=== PATIENT | female | born 1990 | race Hispanic/Latino ===

== ENCOUNTER → 2018-05-04 13:07 | Outpatient (CLI) | payer MEDICAID, SELFPAY ==
[2018-05-04 13:44] LABS: Add Manual Diff / Slide Review NO; Basophils Absolute Auto 0 /uL (0-100); Basophils Percent Auto 0.5 % (0-2); Eosinophils Absolute Auto 100 /uL (0-450); Hematocrit 42.5 % (36-46); Hemoglobin 14.6 g/dL (12.0-16.0); Lymphocytes Absolute Auto 2100 /uL (1100-4500); Lymphocytes Percent Auto 22.2 % (25-40); Mean Corpuscular HGB Conc 34.4 % (30-36); Mean Corpuscular Hemoglobin 30.3 PG (26-34); Mean Corpuscular Volume 88.1 fL (80-100); Monocytes Absolute Auto 600 /uL (0-900); Monocytes Percent Auto 6.1 % (3-14); Neutrophils Absolute Auto 6700 /uL (1500-7000); Neutrophils Percent Auto 70.2 % (50-75); Platelet Count 259 X10^3/uL (150-400); Red Blood Cell Count 4.82 X10^6/uL (4.0-5.2); Red Cell Distribution Width 13.2 % (11.6-14.8); White Blood Cell Count 9.6 X10^3/uL (4.5-11.0)
[2018-05-04 14:05] LABS: Appearance Urine UA CLEAR; Bilirubin Urine UA NEGATIVE (NEGATIVE); Color Urine UA YELLOW; Glucose Urine UA NEGATIVE (Negative); Ketones Urine UA NEGATIVE (NEGATIVE); Leukocyte Esterase Urine UA NEGATIVE (NEGATIVE); Nitrite Urine UA NEGATIVE (Negative); Occult Blood Urine UA NEGATIVE (Negative); Protein Urine UA NEGATIVE (Negative); Specific Gravity Urine UA 1.025 (1.000-1.035); Urobilinogen Urine UA 0.2 E.U./dL (0.2); pH Urine UA 6.5 (4.5-8.0)
[2018-05-04 15:48] LABS: Hepatitis B Surface Antigen NEGATIVE s/c (NEGATIVE); Rubella Antibody IgG 89.4 IU/mL (>15)
[2018-05-04 16:05] LABS: HIV 1 and 2 Antibody NEGATIVE (NEGATIVE); Hep C Virus Ab w/Reflex Quant NEGATIVE s/c (NEGATIVE)
[2018-05-06 22:00] LABS: RPR Screen Nonreactive (Nonreactive)
== END ==
PROVIDERS: Visit Provider Family Medicine
DX: Z34.01 Encounter for supervision of normal first pregnancy, first trimester (principal)
CPT/HCPCS: 36415; 80055; 81003; 86703; 86787; 86803; 86850; 86900; 86901; 87086

== ENCOUNTER → 2018-05-05 14:49 | Outpatient (CLI) | payer MEDICAID, SELFPAY ==
--- NOTE | 2018-05-05 14:52 | DI.US.S_ITS ---
PROCEDURE: US OB <= 14 WEEKS FETUS INDICATIONS: DATES OUTSIDE/PRIOR DATING DATA: Last menstrual period (LMP): 03/11/18. LMP-based estimated date of delivery (CANDE): 12/16/18. First dating scan (date and location): 05/05/18. Estimated date of delivery (ACNDE) from first dating scan: 12/19/18. TECHNIQUE: Real-time scanning was performed of the fetus and maternal pelvic organs, with image documentation. Endovaginal scanning was also performed to better visualize the fetus and maternal ovaries. COMPARISON: None. FINDINGS: Embryo: [place]-rump length of 1.3 cm correlates with a gestational age estimate of 7 weeks 3 days, plus or -5 days. Heart rate of 153 beats per minute is seen. Measurement variability in dating: +/- 4 weeks by LMP, +/- 7 days by mean sac diameter (use before 6 weeks gestation if crown-rump length not able to be measured), +/- 5 days by crown-rump length (up to 8 weeks 6 days gestation), +/- 7 days by crown-rump length (up to 13 weeks 6 days gestation). Maternal organs: Ovaries appear normal on the right and not seen on the left. Limited images through the kidneys demonstrate no hydronephrosis. IMPRESSION: Single living intrauterine gestation with delivery date projected to be centered on the 12/19/18, plus or -5 days. Followup anatomic survey is recommended at 21 weeks gestation. Dictated by: Ang Youssef M.D. on 05/05/2018 at 16:02 Approved by: Ang Youssef M.D. on 05/05/2018 at 16:03
== END ==
PROVIDERS: PCP Family Medicine; Visit Provider Family Medicine
DX: Z34.01 Encounter for supervision of normal first pregnancy, first trimester (principal); Z3A.01 Less than 8 weeks gestation of pregnancy
CPT/HCPCS: 76801; 76817

== ENCOUNTER → 2018-06-06 10:24 | Outpatient (CLI) | payer MEDICAID, SELFPAY ==
--- NOTE | 2018-06-06 11:26 | DIET.PN ---
Met for [facility] DX: PG, obesity Pt reports wt increased after she tore her ACL and had it repaired - approx 1.5 years ago. Prior to that used to run a lot. Not it hurts to run. Does some walking w/ 2-3X/week, but not vigorous/intentional. Is willing to work on increasing exercise again. Had some N/V w/PG but that has resolved and appetite returning. Usual Diet: 3meals/day - when gets hungry, plus snacks. Yesterday snacked on chips and fruit. Usually eats a lot of fruit for snacks. Diet includes a lot of foods: casseroles w/pasta or rice and meats. Vegetable intake low. Diet high in starchy foods: tortillas, cereal, pasta, rice Ht: 5'3/4 Wt (2 yr ago) 130# Current: 176# (down from 180# r/t N/V) BMI: 33 Assessment: Diet excessive in starchy foods; low in non-starchy vegetables. Exercise level low, but will to increase - limited by ACL pain. Pt appears receptive to making lifestyle changes. Intervention: Provided education on Healthy plate model for portion control; improving nutritional balance Plan/goal: Use healthy plate for portioning Decrease starchy food intake; increase veg intake. Suggest DC sugar added beverages ([place]) May call w/further question of to request f/u
== END ==
PROVIDERS: PCP Family Medicine; Visit Provider Family Medicine
DX: E66.9 Obesity, unspecified (principal)
CPT/HCPCS: 97802

== ENCOUNTER → 2018-07-19 15:25 | Outpatient (CLI) | payer MEDICAID, SELFPAY ==
[2018-07-26 12:51] LABS: AFP, Serum 57.4 ng/mL; Calc Gestational Age 18.6; Cigarette Smoker NOT GIVEN; Donated Egg N; Donor Egg Age NOT GIVEN; Estriol, Free 1.93 ng/mL; Inhibin A, Dimeric 342 pg/mL; Maternal Ethnicity HISPANIC; Maternal Weight 179 lbs; Number of Fetuses 1; Previous Pregnancy Down Syndro N; hCG, MoM 2.73; hCG, Serum 56.6 IU/mL
== END ==
PROVIDERS: PCP Family Medicine; Visit Provider Family Medicine
DX: Z34.02 Encounter for supervision of normal first pregnancy, second trimester (principal); Z3A.18 18 weeks gestation of pregnancy
CPT/HCPCS: 36415; 82105; 82677; 84702; 86336

== ENCOUNTER → 2018-07-29 14:54 | Outpatient (CLI) | payer MEDICAID, SELFPAY ==
--- NOTE | 2018-07-29 14:55 | DI.US.S_ITS ---
PROCEDURE: US OB >= 14 WEEKS FETUS INDICATIONS: ANATOMY SCREENING OUTSIDE/PRIOR DATING DATA: Last menstrual period (LMP): 03/11/18. LMP-based estimated date of delivery (CANDE): 12/16/18. First dating scan (date and location): 05/05/18. Estimated date of delivery (CANDE) from first dating scan: 12/19/18. TECHNIQUE: Real-time scanning was performed of the fetus, with image documentation and biometric measurements. Endovaginal scanning: Not needed for this study COMPARISON: None. FINDINGS: General: A single living intrauterine gestation is present. Presentation: Vertex Placenta: Placental position is anterior maternal right, without previa. Amniotic fluid index: 14.9 cm, normal range is 5-24 cm. heart rate: 147 beats per minute. Maternal cervical canal: 4.3 cm long. Normal lower limit is 2.5 cm. biometrics: Biparietal diameter: 4.9 cm, 20 weeks 6 days Head circumference: 17.5 cm, 20 weeks 0 days Abdominal circumference: 15.3 cm, 20 weeks 0 days Femur length: 3.0 cm, 19 weeks 3 days Estimated gestational age from initial scan: 19 weeks 4 days Composite gestational age from present scan: 20 weeks 0 days Estimated weight and percentile: 327 g, 72nd percentile Measurement variability for biometric dating: +/- 7 days from 14 weeks to 15 weeks 6 days gestation, +/- 10 days from 16 weeks to 21 weeks 6 days gestation, +/- 2 weeks from 22 weeks to 27 weeks 6 days gestation, +/- 3 weeks for 28 weeks gestation or later. weight reference: 4500 g or EFW >90/95% is considered macrosomia or large for gestational age. EFW <10% is small for gestational age. EFW 5% or less is considered intra-uterine growth restriction. Anatomic survey: Neuro: Ventricles are non-dilated at less than 10 mm. Cisterna magna is normal at 3-11 mm. Cerebellum is normal in size and morphology. Small arachnoid cyst left choroid plexus as an incidental finding. Nuchal skin fold: Normal at less than 6 mm between 14-21 weeks gestational age. Face: Nose and lips, facial profile are normal. Spine: No evidence for spina bifida. Heart: 4-chambered heart is present, with normal ventricular outflow tracts. Diaphragm: Diaphragm is intact. Stomach: Left-sided stomach is present. Kidneys: No hydronephrosis. Normal is less than 5 mm in 2nd trimester, less than 7 mm in 3rd trimester. Left kidney is less well-visualized than the right, due to positioning. Cord: 3-vessel cord has orthotopic insertion. Bladder: Normal in size. Extremities: All 4 extremities identified. IMPRESSION: Appropriate interval growth, no anomaly seen. A delivery date is projected to be centered on 12/19/18. Dictated by: Ang Youssef M.D. on 07/29/2018 at 16:23 Approved by: Ang Youssef M.D. on 07/29/2018 at 16:29
== END ==
PROVIDERS: PCP Family Medicine; Visit Provider Family Medicine
DX: Z36.89 Encounter for other specified antenatal screening (principal); Z3A.20 20 weeks gestation of pregnancy
CPT/HCPCS: 76811

== ENCOUNTER → 2018-09-13 14:28 | Outpatient (CLI) | payer MEDICAID, SELFPAY ==
[2018-09-13 16:08] LABS: Hematocrit 38.2 % (36-46); Hemoglobin 13.1 g/dL (12.0-16.0)
[2018-09-13 18:04] LABS: GTT (PREG) 1 Hour PP 50gm Dose 123 mg/dL (76-139)
== END ==
PROVIDERS: PCP Family Medicine; Visit Provider Family Medicine
DX: Z34.02 Encounter for supervision of normal first pregnancy, second trimester (principal); Z3A.24 24 weeks gestation of pregnancy
CPT/HCPCS: 82950; 85014; 85018

== ENCOUNTER → 2018-11-22 11:05 | Outpatient (CLI) | payer MEDICAID, SELFPAY ==
[2018-11-23 15:23] LABS: Strep Grp B PCR NEG for Grp B Strep
== END ==
PROVIDERS: PCP Family Medicine; Visit Provider Family Medicine
DX: Z34.90 Encounter for supervision of normal pregnancy, unspecified, unspecified trimester (principal); Z11.59 Encounter for screening for other viral diseases; Z3A.36 36 weeks gestation of pregnancy
CPT/HCPCS: 87653

== ENCOUNTER → 2018-12-16 15:45 | Outpatient (CLI) | payer MEDICAID, SELFPAY ==
--- NOTE | 2018-12-16 15:46 | DI.US.S_ITS ---
PROCEDURE: US OB LIMITED INDICATIONS: GROWTH, SIZE GREATER THAN DATES OUTSIDE/PRIOR DATING DATA: Last menstrual period (LMP): 03/11/18. LMP-based estimated date of delivery (CANDE): 12/16/18. First dating scan (date and location): 05/05/18. Estimated date of delivery (CANDE) from first dating scan: 12/19/18. TECHNIQUE: Real-time scanning was performed of the fetus, with image documentation and biometric measurements. Endovaginal scanning: Not performed. COMPARISON: None. FINDINGS: General: A single living intrauterine gestation is present. Presentation: Vertex. Placenta: Placental position is anterior, without previa. Amniotic fluid index: 15.6 cm, normal range is 5-24 cm. the largest vertical fluid pocket measures 4.95 cm. heart rate: 157 beats per minute. Maternal cervical canal: Not visualized secondary to advanced gestational age and positioning. biometrics: Biparietal diameter: 9.52 cm, correlating with 38 weeks and 6 days. Head circumference: 33.92 cm, correlating with 39 weeks and 0 days. Abdominal circumference: 36.8 cm, correlating with 40 weeks and 5 days (93rd percentile). Femur length: 7.61 cm, correlating with 38 weeks and 6 days. Estimated gestational age from initial scan: not applicable. Composite gestational age from present scan: 39 weeks and 3 days Estimated weight and percentile: 3925 g, correlating with the 80th percentile based on gestational age. Other: There is moderate left hydronephrosis of the maternal kidney. IMPRESSION: 1. Single living intrauterine gestation with an estimated sonographic gestational age of approximately 39 weeks and 3 days versus approximately 39 weeks and 4 days by initial ultrasound dating. Expected interval growth has occurred. Estimated weight is approximately 3925 g which correlates with the 80th percentile. 2. The abdominal circumference measured at the 93rd percentile. 3. Normal 4 quadrant TAMANNA measuring 15.6 cm with the largest vertical fluid pocket measuring 4.95 cm. 4. Moderate left maternal hydronephrosis. Dictated by: Neymar Galicia M.D. on 12/16/2018 at 16:46 Approved by: Neymar Galicia M.D. on 12/16/2018 at 16:57
== END ==
PROVIDERS: PCP Family Medicine; Visit Provider Family Medicine
DX: O36.63X0 Maternal care for excessive fetal growth, third trimester, not applicable or unspecified (principal); O99.89 Other specified diseases and conditions complicating pregnancy, childbirth and the puerperium; N13.30 Unspecified hydronephrosis; Z3A.39 39 weeks gestation of pregnancy
CPT/HCPCS: 76815

== ENCOUNTER 2018-12-17 00:56 | Observation (INO) | payer MEDICAID, SELFPAY ==
--- NOTE | 2018-12-17 08:30 | PM.OBTRLD ---
Visit Information Visit Information Date of evaluation: 12/17/18 Primary OB Provider: Silvia Rutledge Reason for Evaluation: Yes rule out labor Vital Signs Vital Signs: Temp 36.2 BP 135/88 P 76 PFSH Social History marital status: household members: spouse lives independently: Yes education level: college occupational status: employed Smoking Status: Never smoker alcohol intake: never substance use type: does not use Evaluation Evaluation Baseline heart rate: 130 Variability: Moderate (11-25) monitor accelerations: Present monitor decelerations: Absent Contraction Frequency (minutes): 5 Uterine Contraction Intensity: Mild Category of Tracing: I Cervical dilation (cm): 1 Cervical effacement (%): 70 station: -2 Diagnosis, Plan/Disposition Final Diagnosis (1) 40 weeks gestation of : Current Visit: Yes Status: Acute Plan/Disposition Plan: 28 year old at 40+1 weeks with regular contractions. NST reactive. SVE /-2. Patient discharged home with return precautions. OB Disposition: home
== END 2018-12-17 02:10 | disposition home or self-care (01) ==
LOC: LABOR 00:58
PROVIDERS: Admitting Provider Family Medicine; PCP Family Medicine; Visit Provider Family Medicine
DX: Z34.93 Encounter for supervision of normal pregnancy, unspecified, third trimester (principal); Z3A.40 40 weeks gestation of pregnancy
CPT/HCPCS: 59025; 59050; G0378; G0379

== ENCOUNTER 2018-12-17 19:48 | Inpatient (IN) | payer MEDICAID, OTHER, SELFPAY ==
--- NOTE | 2018-12-17 20:43 | PM.OBHP.1 ---
OB HPI Date/Time Date of admission: 12/17/18 Date Patient Seen: 12/17/18 Time Patient Seen: 20:43 History of Present Condition Chief complaint: labor : 1 Para: 0 Estimated Date of Delivery: 12/16/18 Estimated Gestational Age (weeks): 40w1d Narrative: Tania Samayoa is a 28 year old at 40 weeks and 1 day in active labor. Patient has been russ since early this morning however states that contractions become more painful at 6 PM this evening. Denies bleeding or leaking of fluid. has been uncomplicated with regular care. History of Present care: good care, initiated at week # (8), number of visits (12) and pounds weight gain (37) Dating criteria: LMP confirmed by 1st trimester US Ultrasounds: normal mid trimester US Obstetrical complications: none Medical complications: none Preadmission Labs Blood type: O (+) positive -: Antibody screen: negative, GBS status: negative, HBsAG: negative, HIV: negative and RPR/VDLR: negative -: Chlamydia screen: not detected and Gonorrhea screen: not detected -: Rubella: immune and Varicella: immune HCT: 42.5 Quad screen: Normal Urine: Negative 1 hr GTT: 123 Evaluation Evaluation Baseline heart rate: 120 Variability: Moderate (11-25) monitor accelerations: Present monitor decelerations: Absent Contraction Frequency (minutes): 5 Uterine Contraction Intensity: Strong/Firm Category of Tracing: I Cervical dilation (cm): 5 Cervical effacement (%): 100 station: -2 [facility] Medical History Lactose intolerance (Chronic) Seasonal allergies (Chronic) Surgical History S/P laparoscopic appendectomy (Resolved ~2009) S/P left knee surgery (Resolved ~10/2016) S/P wisdom tooth extraction (Resolved) Family History Grandmother Cancer Sister Gastric ulcer Social History marital status: household members: spouse lives independently: Yes education level: college occupational status: employed Smoking Status: Never smoker alcohol intake: never substance use type: does not use Family History Grandmother Cancer Sister Gastric ulcer Social History marital status: household members: spouse lives independently: Yes education level: college occupational status: employed Smoking Status: Never smoker alcohol intake: never substance use type: does not use Meds Home Medications and Allergies Home Medications Medication Instructions Recorded Confirmed Type prenat.vits,ashlie,bmp-iwbc-eoued 1 tab PO DAILY 05/04/18 05/04/18 History ondansetron 4 mg disintegrating 4 mg PO TID PRN #20 tab 07/27/18 Rx tablet Allergies Allergy/AdvReac Type Severity Reaction Status Date / Time lactose AdvReac Intermediate Verified 05/04/18 13:18 Review of Systems Constitutional Constitutional: Denies fatigue, Denies fever(s) and Denies headache(s) ENT Ears, Nose, Mouth, and Throat: No headache(s) Cardiovascular Cardiovascular: Reports leg swelling (mild) Respiratory Respiratory: Denies cough Neurologic Neurologic: Denies headache(s) Endocrine Endocrine: Denies fatigue Exam Const General: healthy appearing and comfortable HENAL Head: normal to inspection Ears: hearing grossly normal bilaterally Nose: external nose normal Face and sinus: normal facial exam Mouth: oral mucosae normal Eyes General: appearance normal, both eyes and all related structures Neck Neck: normal visual inspection Resp Effort & Inspection: normal respiratory effort Auscultation: clear to auscultation bilaterally Cardio Rate: regular rate Rhythm: regular rhythm Heart Sounds: no murmurs GI Other: Gravid External Female Exam: external appearance normal Manual OB Exam: dilated (5), effaced fully and station -2 Back/Spine/Pelvis Back: normal to inspection Skin General: no rashes or lesions noted Extrem General: normal to inspection and no pedal edema Assessment and Plan Assessment and Plan Assessment and Plan narrative: 28 year old at 40+1 weeks in labor. GBS negative. EFW by ultrasound 12/16/18 3925 g with large abdominal circumference, at risk for shoulder dystocia. Plan - Expectant management - Nitrous per protocol, epidural when desired
[2018-12-17 23:04] LABS: Add Manual Diff / Slide Review NO; Basophils Absolute Auto 100 /uL (0-100); Basophils Percent Auto 0.8 % (0-2); Eosinophils Absolute Auto 0 /uL (0-450); Eosinophils Percent Auto 0.3 % (2-4); Hematocrit 36.3 % (36-46); Hemoglobin 12.2 g/dL (12.0-16.0); Lymphocytes Absolute Auto 1800 /uL (1100-4500); Lymphocytes Percent Auto 16.5 % (25-40); Mean Corpuscular HGB Conc 33.5 % (30-36); Mean Corpuscular Volume 86.6 fL (80-100); Monocytes Absolute Auto 500 /uL (0-900); Monocytes Percent Auto 5.1 % (3-14); Neutrophils Absolute Auto 8300 /uL (1500-7000); Neutrophils Percent Auto 77.3 % (50-75); Platelet Count 259 X10^3/uL (150-400); Red Blood Cell Count 4.19 X10^6/uL (4.0-5.2); Red Cell Distribution Width 15.2 % (11.6-14.8); White Blood Cell Count 10.7 X10^3/uL (4.5-11.0)
[2018-12-17 23:26] VITALS: BP 124/74
[2018-12-17] MEDS: LACTATED RINGERS 1,000 ML 100 ML IV (23:37)
[2018-12-18] VITALS (9 sets, daily range): BP systolic 119–142; BP diastolic 70–87; PULSE 102–119; RESP 12–22; TEMP 36.6–36.8; O2SAT 97–99
[2018-12-18] MEDS: LACTATED RINGERS 1,000 ML 100 ML IV ×4 (02:12→20:39)
--- NOTE | 2018-12-18 02:34 | PM.OBPNLAB ---
Date/Time Date Patient Seen: 12/18/18 Time Patient Seen: 02:25 Pain Control Pain control: tolerating well and epidural Pelvic Exam Dilation (cm): 6 Effacement (%): 100 station: -2 Amniotic membrane status: Ruptured (clear fluid) Contractions Monitor mode: External Contraction intensity: Strong/Firm Status status: Category l Heart Rate Baseline: 130 Monitor Accelerations: Present Monitor Decelerations: Absent Monitor Variability: Moderate Assessment and Plan Assessment: active labor Comments: Little cervical change since admission however patient now comfortable with epidural. AROM with clear fluid. There were difficulties with the monitor that have now resolved. If contractions do not increase after AROM will start pitocin.
[2018-12-18] MEDS: OXYTOCIN PREMIX 30 UNIT/500 ML PLAST..BAG IV (03:51)
[2018-12-18] MEDS: fentaNYL 100 MCG/2 ML INJ EPIDURAL (09:35)
--- NOTE | 2018-12-18 11:01 | PM.OBPNLAB ---
Date/Time Date Patient Seen: 12/18/18 Time Patient Seen: 10:15 Pain Control Pain control: tolerating well and epidural Comments: Patient is now doing well however her epidural had to be redone. She complains of feeling pressure in her bottom. Pelvic Exam Dilation (cm): 9 Effacement (%): 100 station: -1 Amniotic membrane status: Ruptured (clear fluid) Contractions Monitor mode: External Pitocin rate (mU/min): 6 Contraction frequency (min): 2 Contraction pattern: Regular Contraction intensity: Strong/Firm Status status: Category l Heart Rate Baseline: 140 Monitor Accelerations: Present Monitor Decelerations: Absent Monitor Variability: Moderate Assessment and Plan Assessment: active labor Plan: continuous present management Comments: Patient has been making very slow progress however still changing. Pitocin was started at 3:30 a.m. due to decrease contractions. She has now had a regular contraction pattern since approximately 4:30 a.m. today. She has had a rim of cervix for the last hour with little descent of the head. Will recheck in an hour, if she has not progressed to complete will consider primary section. The possibility of section was discussed with the patient. I do think this is a very large baby and the patient is only 5 ft 1 inch tall. I suspect the slow progress and lack of significant distant may be due to cephalopelvic disproportion.
--- NOTE | 2018-12-18 12:03 | PM.OBPNLAB ---
Date/Time Date Patient Seen: 12/18/18 Time Patient Seen: 12:03 Pain Control Comments: Becoming more uncomfortable Pelvic Exam Dilation (cm): 9 Effacement (%): 100 station: -1 Amniotic membrane status: Ruptured (clear fluid) Contractions Monitor mode: External Contraction frequency (min): 2 Contraction pattern: Regular Contraction intensity: Strong/Firm Status status: Category l Heart Rate Baseline: 140 Monitor Accelerations: Present Monitor Decelerations: Absent Monitor Variability: Moderate Assessment and Plan Plan: Comments: Patient with no cervical supervisor records change the last 3 hours despite contractions every 2-3 min and frequent position change. Labor progress has been quite slow overall. Will proceed with primary section for arrest of labor. Risks and benefits reviewed with patient, specifically risk of bleeding, infection, injury to surrounding organs (especially bowel, bladder and ureters). All questions answered.
--- NOTE | 2018-12-18 12:10 | PM.PREOP ---
Pre-operative Note Interval Note History & Physical reviewed/Exam performed by Physician: Yes Changes to H&P: No
[2018-12-18] MEDS: CEFAZOLIN 2 GM/100 ML FROZ.PIGGY IV (12:32)
--- NOTE | 2018-12-18 12:50 | SUR.OPER ---
Supine on Padded OR bed, head on pillow, safety belt at thigh, arms secured on padded arm boards at <90 degrees abduction. Bump under right buttock. Legs uncrossed with pillow under knees, gel pad to heels, tape over blanket to lower legs.
[2018-12-18] MEDS: ACETAMINOPHEN IV 1,000 MG/100 ML VIAL 400 MG IV (13:00)
--- NOTE | 2018-12-18 13:01 | SUR.OPER ---
preoperative FHT = 152. Live female at 1301
--- NOTE | 2018-12-18 13:53 | PM.OP.1 ---
Operative Date/Time/Diagnoses Date of procedure: 12/18/18 Time of procedure: 13:15 Pre-op diagnosis: Failure to progress 40 weeks of Post-op diagnosis: same Procedure & Clinicians Procedure: Primary low-transverse section Same procedure as scheduled: Yes Indications: Failure to progress Surgeon: Silvia Rutledge Security Sergeant: Reshma Villegas Click Yes if Unassisted: No Anesthesia Type: Epidural Operative Notes Findings: Normal uterus, tubes and ovaries Closure Type: primary Applied: catheter Estimated Blood Loss (mL): 750 Procedure in detail: The patient was taken to the operating room. Her epidural was redosed and anesthesia found to be adequate. She was then placed in the dorsal supine position with a leftward tilt. She was prepped and draped in the usual sterile fashion. A timeout was performed. After spinal analgesia was found to be adequate, a Pfannenstiel skin incision was made 2 fingerbreadths above the pubic symphysis and carried through to the underlying layer fascia. The fascia was nicked in the midline and the incision extended bilaterally with Shipley scissors. The superior aspect of the fascial incision was grasped with a Roberto clamps, elevated, and the underlying rectus muscles dissected off sharply and bluntly. Attention was then turned to the inferior aspect of this incision which in a similar fashion was grasped with a Roberto clamps, elevated, and the underlying rectus muscles dissected off sharply and bluntly. The rectus muscles were in the midline. The peritoneum was identified, grasped between 2 hemostats, and entered sharply with the Metzenbaum scissors. This incision was extended superiorly and inferiorly with good visualization of the bladder. The bladder blade was inserted. The vesicouterine peritoneum was identified, grasped with the pickup, and entered sharply with the Metzenbaum scissors. This incision was extended bilaterally, and the bladder flap was created digitally. The bladder blade was reinserted. The lower uterine segment was incised in a transverse fashion with the scalpel. Upon entering the amniotic sac there was a small amount clear amniotic fluid. Infant was found to be in the direct occiput posterior positition. The 's head was delivered. The remainder of the body delivered without difficulty. The cord was double clamped and cut. The was handed off to waiting RNs. The placenta was delivered manually. The uterus was cleared of all clots and debris. The uterine incision was repaired with #1 chromic in a running interlocking fashion and a second layer the same suture was used for an imbricating layer. Hemostasis was achieved. The tubes and ovaries were examined and were found to be normal. The gutters were cleared of all clots and debris. The parietal peritoneum was closed using 2-0 Vicryl in a running fashion. The fascia was reapproximated using #1 Vicryl in a running fashion. Subcutaneous layer was copiously irrigated with warm normal saline. 3 simple interrupted sutures of 3-0 Vicryl were placed to reapproximate the subcutaneous layer. The skin was closed with 4-0 undyed Vicryl in a subcuticular fashion. Steri-Strips were placed. An Aquacel dressing was placed. The uterus was expressed of a moderatel amount of red blood and clot. Sponge, lap, and instrument counts were correct. The patient tolerated the procedure well, and was taken to PACU in stable condition. Complications: other (Bladder noted to be distended during surgery, catheter back with bloody urine, catheter to be removed and replaced post-op) Post-operative Condition: stable Disposition: PACU
[2018-12-18] MEDS: METHYLERGONOVINE 0.2 MG/ML VIAL IM (14:09)
--- NOTE | 2018-12-18 14:09 | SUR.PHASEI ---
Catheter removed per Dr. Rutledge verbal order. Catheter removed by Tiffanie Richmond RN. New catheter inserted by DANIE Moreno per verbal order received from Dr. Rutledge. Pt tolerated well. Hymera tinged urine returned when catheter inserted.
[2018-12-18] MEDS: miSOPROStol 200 MCG TABLET 800 MCG PR (14:45)
[2018-12-18] MEDS: OXYTOCIN 10 UNIT/ML VIAL 20 UNIT IM (14:51)
--- NOTE | 2018-12-18 14:56 | SUR.PHASEI ---
Pt transferred to [facility]. Pt alert and talking to RN at bedside. Bedside report given to DANIE Mcelroy upon arrival. Upon arrival, pt observed to have large amount of bleeding vaginally. Dr. Rutledge called into pt room. Dr. Rutledge at bedside and gave L&D RN verbal orders. Transferred care of pt to Lilibeth, at that time.
[2018-12-18] MEDS: CARBOPROST 250 MCG/ML AMPUL IM (15:00)
[2018-12-18] MEDS: KETOROLAC 30 MG/ML VIAL IV (19:30)
[2018-12-19] MEDS: KETOROLAC 30 MG/ML VIAL IV ×2 (01:30→09:40)
[2018-12-19] MEDS: OXYCODONE IR 10 MG TABLET PO (02:44)
[2018-12-19 09:11] LABS: Hematocrit 21.2 % (36-46)
[2018-12-19] MEDS: DOCUSATE 250 MG CAPSULE PO (09:39)
[2018-12-19] MEDS: PRENATAL VIT,CALC/IRON/FOLIC 1 TABLET 1 TAB PO (09:39)
[2018-12-19] MEDS: OXYCODONE IR 5 MG TABLET PO ×3 (12:54→22:26)
--- NOTE | 2018-12-19 14:23 | PM.OBPN.1 ---
Subjective - OB Subjective Patient comments: no complaints, pain well controlled, tolerating diet and flatus present baby status: doing well and nursing well [place] feeding status: exclusively breast feeding Date Patient Seen: 12/19/18 Time Patient Seen: 13:15 Interval history: Patient had a hemorrhage yesterday following delivery. Hemorrhage resolved with Pitocin, Methergine, Cytotec and Hemabate. H&H is low this morning at 7.0 and 21.2 however patient denies dizziness or lightheadedness upon sitting or standing. She states overall she actually feels pretty good. She rates her incisional pain as a 2 to 4/10. Bleeding is reportedly light. She is eating, voiding and passing flatus. Ambulating slowly with some pain at her incision which is to be expected. She is and states that is going well. No issues in the . Exam Vital Signs (past 8 hours): Oxygen Delivery Method Room Air Temperature 37.7? blood pressure 119/71 heart rate 113 General: Awake and alert, no acute distress. HEENT: NCAT, EOMI, moist oral mucosa CV: Regular rate and rhythm, no murmurs, rubs or gallops Lungs: CTAB, no wheezes, rales, or rhonchi Abdomen: Aquacel dressing intact. Areas of drainage unchanged from yesterday. Soft, nontender except over uterus; bowel tones active; uterus firm 1 cm below umbilicus. Extremities: Warm, 1+ edema in feet bilaterally, 2+ pedal pulses bilaterally Objective Labs Result Diagrams: 12/19/18 08:45 Labs: Laboratory Results - last 24 hr 12/19/18 08:45 Hgb 7.0 L Hct 21.2 L Assessment & Plan Assessment and Plan (1) 40 weeks gestation of : Status: Acute Current Visit: Yes (2) hemorrhage: Status: Acute Current Visit: Yes (3) S/P section: Status: Acute Current Visit: Yes (4) Failure to progress in first stage of labor: Status: Acute Current Visit: Yes Plan day: 1 plan OB: routine postop care Comments: 28-year-old day 1 after primary section for failure to progress. Patient had a hemorrhage shortly after delivery which resolved with Pitocin, Cytotec, Methergine and Hemabate. Bleeding today is light. She did lose a significant amount of blood. H&H on admission was 12.2/36.3 and today is 7.0 and 21.2. Patient is slightly tachycardic however denies dizziness or lightheadedness upon standing. Offered blood transfusion and reviewed risks and benefits. Since she is feeling well she would like to hold off for now. Will supplement with iron and recheck H&H tomorrow. She otherwise is doing quite well. Ambulating, urinating, passing flatus and breast-feeding without difficulty. Continue routine post care. Anticipate discharge home tomorrow. Time Spent With Patient Time: Total time spent is greater than 50% in coordination of care (as documented) at patient's floor/unit and/or counseling patient: Time with patient: 15-24 minutes
[2018-12-19 22:24] VITALS: TEMP 36.8
[2018-12-19] MEDS: IBUPROFEN 600 MG TABLET PO (22:24)
[2018-12-19] MEDS: FERROUS GLUCONATE 324 MG TABLET PO (22:26)
[2018-12-20] VITALS (8 sets, daily range): BP systolic 104–134; BP diastolic 66–84; PULSE 83–95; RESP 16–18; TEMP 36.3–37.1
[2018-12-20] MEDS: OXYCODONE IR 5 MG TABLET PO ×4 (02:32→21:02)
[2018-12-20] MEDS: IBUPROFEN 600 MG TABLET PO ×3 (04:44→22:25)
[2018-12-20 06:58] LABS: Hemoglobin 6.7 g/dL (12.0-16.0)
[2018-12-20 06:59] LABS: Hematocrit 19.8 % (36-46)
--- NOTE | 2018-12-20 08:26 | PM.OBPN.1 ---
Subjective - OB Subjective Date Patient Seen: 12/20/18 Time Patient Seen: 08:00 Interval history: Patient reports she is feeling much better today compared to yesterday. When she is resting her incisional pain is about a 2. She does notice pain when she is up moving around but it is not severe. Bleeding is very light. She is urinating, ambulating, voiding and passing flatus without difficulty. is going well. No issues in the period Denies dizziness or lightheadedness upon standing. Exam Vital Signs (past 8 hours): Oxygen Delivery Method Room Air temperature 97.0? blood pressure 120/73 heart rate 88 respirations 15 Narrative Exam Narrative: General: Awake and alert, no acute distress. HEENT: NCAT, EOMI, moist oral mucosa CV: Regular rate and rhythm, no murmurs, rubs or gallops Lungs: CTAB, no wheezes, rales, or rhonchi Abdomen: Aquacel dressing intact without drainage. Soft, nontender; bowel tones active; uterus firm 1 cm below umbilicus. Extremities: Warm, trace edema bilaterally, 2+ pedal pulses bilaterally Objective Labs Result Diagrams: 12/20/18 06:20 Labs: Laboratory Results - last 24 hr 12/17/18 12/19/18 12/20/18 22:20 08:45 06:20 Hgb 7.0 L 6.7 L* Hct 21.2 L 19.8 L* Blood Type O Positive Antibody Screen Negative Crossmatch See Detail Assessment & Plan Assessment and Plan (1) 40 weeks gestation of : Status: Acute Current Visit: No (2) hemorrhage: Status: Acute Current Visit: Yes (3) S/P section: Status: Acute Current Visit: Yes (4) Failure to progress in first stage of labor: Status: Acute Current Visit: Yes Plan day: 2 plan OB: routine postop care Comments: Patient is now day 2 after primary section complicated by hemorrhage. H&H is slightly lower today compared to yesterday (6.7/19.8). We had been holding off on transfusion because she was asymptomatic but recommend transfusion today given the severity of her anemia. Risks and benefits of transfusion reviewed with patient. Will transfuse 2 units of PRBCs. Repeat H&H this afternoon. Continue iron. We will consider discharging home this evening if she continues to do very well. Time Spent With Patient Time: Total time spent is greater than 50% in coordination of care (as documented) at patient's floor/unit and/or counseling patient: Time with patient: less than 15 minutes
[2018-12-20] MEDS: ACETAMINOPHEN 325 MG TABLET 650 MG PO (10:27)
[2018-12-20] MEDS: DOCUSATE 250 MG CAPSULE PO (10:27)
[2018-12-20] MEDS: FERROUS GLUCONATE 324 MG TABLET PO ×2 (10:29→21:02)
[2018-12-20] MEDS: PRENATAL VIT,CALC/IRON/FOLIC 1 TABLET 1 TAB PO (10:29)
[2018-12-20] MEDS: SODIUM CHLORIDE 0.9% 1,000 ML 100 ML IV (10:32)
[2018-12-20 19:01] LABS: Hemoglobin 8.8 g/dL (12.0-16.0)
[2018-12-21] MEDS: IBUPROFEN 600 MG TABLET PO (03:56)
[2018-12-21] MEDS: OXYCODONE IR 5 MG TABLET PO ×2 (03:56→08:43)
[2018-12-21 07:05] LABS: Hematocrit 25.5 % (36-46); Hemoglobin 8.6 g/dL (12.0-16.0)
--- NOTE | 2018-12-21 07:36 | P.DS_ITS ---
Discharge Providers Provider Date of admission: 12/17/18 19:48 Discharge Date: 12/21/18 Primary care physician: Silvia Rutledge DO Consults: 12/18/18 15:41 Consult to Medical Claims Examiner Routine Comment: Discharge provider: Silvia Rutledge DO Summary Hospital Course Date Patient Seen: 12/21/18 Time Patient Seen: 07:10 Procedures: Epidural analgesia Primary low-transverse section Hospital Course: Patient is a 28-year-old after primary low-transverse section for failure to progress. Delivery was complicated by hemorrhage which resolved with Pitocin, misoprostol, Methergine and Hemabate as well as fundal massage. hemorrhage felt to be due to uterine atony after a long labor. day 1 H&H was 7.0 and 21.9. Patient was offered transfusion due to mild tachycardia however she felt okay and declined transfusion. On day 2 patient did receive 2 units of packed red blood cells due to hemoglobin of 6.7 and hematocrit of 19.8. Day of discharge hemoglobin was 8.8 and hematocrit 26. Patient reported minimal vaginal bleeding. Pain was well controlled with ibuprofen and oxycodone. She was ambulating, eating, voiding and stooling without difficulty. Breast-feeding was going very well at the time of discharge in 's weight had started to go up since . Patient will be discharged with supplemental iron in addition to oxycodone, ibuprofen and stool softeners. All questions were answered. She was eager to return home with her . She will follow up in clinic in 2 days for Aquacel dressing removal. Peripartum Data Delivery Method: Section complications: transfusion and uterine atony ( hemorrhage) [place] 1: Gender: Female Disposition of : home Discharge Diagnosis (1) 40 weeks gestation of : Status: Acute (2) hemorrhage: Status: Acute (3) S/P section: Status: Acute (4) Failure to progress in first stage of labor: Status: Acute Status at Discharge Cognitive/behavioral status at discharge: at baseline, oriented Overall status at discharge: patient is progressing back to baseline Time Spent with Patient Time attestation: Total time spent providing and/or coordinating discharge services: Time spent: Less than 30 minutes Objective Labs Result Diagrams: 12/21/18 06:30 Labs: Laboratory Results - last 24 hr 09/10/2812/20/18 12/20/18 22:20 18:46 18:46 WBC Cancelled RBC Cancelled Hgb 8.8 L Cancelled Hct 26.0 L Cancelled MCV Cancelled MCH Cancelled MCHC Cancelled RDW Cancelled Plt Count Cancelled Neut % (Auto) Cancelled Lymph % (Auto) Cancelled [place] % (Auto) Cancelled Eos % (Auto) Cancelled Baso % (Auto) Cancelled Neut # (Auto) Cancelled Lymph # (Auto) Cancelled [place] # (Auto) Cancelled Eos # (Auto) Cancelled Baso # (Auto) Cancelled Blood Type O Positive Antibody Screen Negative Crossmatch See Detail 12/21/18 06:30 WBC RBC Hgb 8.6 L Hct 25.5 L MCV MCH MCHC RDW Plt Count Neut % (Auto) Lymph % (Auto) [place] % (Auto) Eos % (Auto) Baso % (Auto) Neut # (Auto) Lymph # (Auto) [place] # (Auto) Eos # (Auto) Baso # (Auto) Blood Type Antibody Screen Crossmatch Exam Vital Signs (past 8 hours): Oxygen Delivery Method Room Air Temperature 36.3? blood pressure 118/80 heart rate 87 General: Awake and alert, no acute distress. HEENT: NCAT, EOMI, moist oral mucosa CV: Regular rate and rhythm, no murmurs, rubs or gallops Lungs: CTAB, no wheezes, rales, or rhonchi Abdomen: Aquacel dressing intact without drainage. Soft, nontender; bowel tones active; uterus firm 1 cm below umbilicus. Extremities: Warm, no edema bilaterally Discharge Plan Discharge Plan Patient Disposition: Home Discharge comment: Call for fevers, severe pain or bleeding through more than a pad an hour. Discharge Med Rec/Prescriptions Prescriptions: New ibuprofen 600 mg Tablet 600 mg PO Q6HR PRN (Reason: As Needed For Fever/Mild Pain) Qty: 30 RF: 0 docusate sodium 250 mg Capsule 250 mg PO DAILY Qty: 30 RF: 0 oxycodone 5 mg Tablet 5 mg PO Q4H PRN (Reason: Pain, Moderate (4-6)) Qty: 20 RF: 0 ferrous gluconate 324 mg (38 mg iron) Tablet 324 mg PO DAILY Qty: 30 RF: 0 Continued prenat.vits,ashlie,[id number] tablet 1 tab PO DAILY RF: 0 Follow up/Referrals: Silvia Rutledge DO [Primary Care Provider] - 12/23/18 4:15 pm Provider Discharge Instructions Diet: Diet as Tolerated Skin/Wound/Dressing Care Report to your healthcare provider any signs of infection, such as:: chills, fever, night sweats, increased pain, unusual drainage and unusual redness Visit Report/Discharge Packet Visit Report Forms: Stroke Signs & Symptoms Discharge Data Primary Care Provider: Silvia Rutledge
[2018-12-21] MEDS: PRENATAL VIT,CALC/IRON/FOLIC 1 TABLET 1 TAB PO (08:42)
[2018-12-21] MEDS: FERROUS GLUCONATE 324 MG TABLET PO (08:43)
[2018-12-21] MEDS: DOCUSATE 250 MG CAPSULE PO (08:43)
[2018-12-21 09:54] VITALS: BP 134/84; PULSE 95; RESP 18; TEMP 37.1
== END 2018-12-21 11:32 | disposition home or self-care (01) | DRG 787 ==
PROVIDERS: Admitting Provider Family Medicine; PCP Family Medicine; Visit Provider Family Medicine
PROC: (CPT 59514; principal; 2018-12-18 12:10)
DX: O62.1 Secondary uterine inertia (principal); O72.1 Other immediate postpartum hemorrhage; D62 Acute posthemorrhagic anemia; Z3A.40 40 weeks gestation of pregnancy; Z37.0 Single live birth; O61.0 Failed medical induction of labor
CPT/HCPCS: 01967; 01968; 36415; 36430; 59025; 59050; 59514; 59515; 76815; 85014; 85018; 85025; 86850; 86900; 86901; G0378; P9016; G0379; J0131; J0690; J1885; J2210; J2274; J2590; J3010; S0191

== ENCOUNTER → 2019-02-22 11:25 | Outpatient (CLI) | payer OTHER, MEDICAID, SELFPAY ==
[2019-02-22 12:18] LABS: Add Manual Diff / Slide Review NO; Basophils Absolute Auto 0 /uL (0-100); Basophils Percent Auto 0.8 % (0-2); Eosinophils Absolute Auto 100 /uL (0-450); Eosinophils Percent Auto 2.5 % (2-4); Hematocrit 42.2 % (36-46); Hemoglobin 14.1 g/dL (12.0-16.0); Lymphocytes Absolute Auto 1800 /uL (1100-4500); Lymphocytes Percent Auto 35.1 % (25-40); Mean Corpuscular HGB Conc 33.4 % (30-36); Mean Corpuscular Hemoglobin 28.6 PG (26-34); Mean Corpuscular Volume 85.5 fL (80-100); Monocytes Absolute Auto 300 /uL (0-900); Monocytes Percent Auto 5.7 % (3-14); Neutrophils Absolute Auto 2900 /uL (1500-7000); Neutrophils Percent Auto 55.9 % (50-75); Platelet Count 225 X10^3/uL (150-400); Red Blood Cell Count 4.94 X10^6/uL (4.0-5.2); Red Cell Distribution Width 13.9 % (11.6-14.8); White Blood Cell Count 5.2 X10^3/uL (4.5-11.0)
== END ==
PROVIDERS: PCP Family Medicine; Visit Provider Family Medicine
DX: O72.1 Other immediate postpartum hemorrhage (principal)
CPT/HCPCS: 36415; 85025